=== PATIENT | female | born 1940 | race Caucasian/White ===

== ENCOUNTER 2016-09-10 11:11 | Inpatient (IN) | payer OTHER ==
[~2016-09-10] VITALS: Ht 157.5 cm; Wt 69.7 kg
[~2016-09-10 11:11] MED LIST: ABILIFY20 MG PO; ABILIFY30 MG PO; ADVIL,NUPRIN,M200 MG PO; ALPHAGAN P100 DROP/5 LEFT EYE; AMARYL1 MG PO; ASPIR 8181 M1 PO; ASPIR-LOW81 MG PO; ASPIRIN81 M1 PO; Aspirin E.C. PO; BAYER ASPIRIN325 MG PO; Bactrim,Septra Singl PO; CAL-CITRATE PL1 EACH PO; CARBIDOPA-LEVO1 EAC3 PO; CARBIDOPA/LEVO1 EACH PO; CEFEPIME HCL1 GM IM; CEFEPIME-D1 GM/50 ML IV; CEFTIN500 MG PO; CEFUROXIME500 MG PO; CELEBREX200 MG PO; CIPROFLOXACIN500 M1 PO; CITRACAL PLUS1 EAC1 PO; CITRACAL W/V1 TABLE1 PO; CITRACAL-VIT D1 EAC2 PO; COLACE100 MG PO; COUMADIN1 MG PO; COUMADIN2.5 MG PO; COUMADIN5 MG PO; COUMADIN6 MG PO; Ceftin PO; Citracal Maximum (Ca PO; DEPAKOTE ER (E500 MG PO; DEPAKOTE ER500 MG PO; DEPAKOTE500 MG PO; DULCOLAX10 MG PR; Depakote PO; Erythromycin Ophth O RIGHT EYE; FLAGYL500 MG PO; FLEET ENEMA-AD118 ML PR; GEMFIBROZIL600 MG PO; GLIMEPIRIDE1 MG PO; HYDROCHLOROTHIA25 MG PO; HYDROCODON-ACE1 EA11 PO; HYDROCODON-ACE1 EAC7 PO; HYDROCORTISON28.4 GM TP; Hydrodiuril,Oretic,E PO; IBUPROFEN800 MG PO; ISOSORBIDE DINI10 MG PO; LAMICTAL25 MG PO; LAMOTRIGINE25 M2 PO; LAMOTRIGINE25 MG PO; LEVAQUIN750 MG PO; LOPID600 MG PO; LOPRESSOR25 MG PO; LOTEMAX5 ML LEFT EYE; LOVENOX100 MG/1 M SC; Lopid PO; MAXIPIME1 GM IV; METOPROLOL SUCC50 MG PO; METOPROLOL TART25 MG PO; METRONIDAZOLE500 MG PO; MILK OF MAGN PO; MIRAPEX0.125 MG PO; MIRAPEX0.25 MG PO; MOTRIN600 MG PO; NITROSTAT0.4 MG SL; NOVOLOG 10100 UNITS/ SC; NOVOLOG PE100 UNITS/ SC; OMEPRAZOLE40 M1 PO; PERI-COLACE TA1 EACH PO; PLAVIX75 MG PO; PRAMIPEXOLE D0.25 MG PO; PRAMIPEXOLE0.125 MG PO; PRAVACHOL40 MG PO; PRAVASTATIN SOD40 MG PO; PRILOSEC40 MG PO; PROTONIX40 MG PO; Pravachol PO; Protonix PO; SENNA8.6 M1 PO; SEROQUEL50 MG PO; SIMVASTATIN10 MG PO; SINEMET 25-1001 EACH PO; SINEMET CR 25-1 EACH PO; SYSTANE 0.3-0.1 EACH BOTH EYES; Sinemet 25-100 PO; Systane 0.3-0.4% Eye BOTH EYES; TOPROL XL50 MG PO; TYLENOL EXTRA500 MG PO; TYLENOL REGULA325 MG PO; Toprol XL PO; VICODIN 5-3001 EACH PO; XALATAN2.5 ML BOTH EYES; Zocor PO
[2016-09-10 11:56] LABS: HEMATOCRIT 32.5 % (36.0-46.0); MCH 24.8 PG (29.0-34.0); MCV 77.6 FL (83-99); MEAN PLAT.VOLUME 9.3 uM^3 (9.5-12.4); PLATELET COUNT 386 K/uL (156-360); RBC DIS.WIDTH-CV 14.8 % (11.8-14.6); RBC DIS.WIDTH-SD 40.8 % (39-53); RED BLOOD COUNT 4.19 M/uL (3.80-5.20); WHITE BLOOD COUNT 21.8 K/uL (4.1-10.2)
[2016-09-10 11:58] LABS: EOSINOPHIL (%) 0.8 % (0-5); EOSINOPHIL COUNT 0.2 K/uL (0-0.3); IMMATURE GRANULOCYTE (%) 0.4 % (0.0-0.7); IMMATURE GRANULOCYTE COUNT 0.8 K/uL; LYMPHOCYTE COUNT 1.3 K/uL (1.0-2.8); MONOCYTE (%) 8.6 % (3-12); MONOCYTE COUNT 1.9 K/uL (0-0.8); NEUTROPHIL (%) 84.3 % (45-76); NEUTROPHIL COUNT 18.4 K/uL (1.8-6.4)
[2016-09-10 12:04] LABS: CHLORIDE 103 mEq/L (99-109); POTASSIUM 4.1 mEq/L (3.7-5.4); SODIUM 134 mEq/L (136-147)
[2016-09-10 12:06] LABS: GLUCOSE 126 mg/dL (70-99)
[2016-09-10 12:07] LABS: ANION GAP 8 MEQ/L (2-14)
[2016-09-10 12:08] LABS: TOTAL BILIRUBIN 0.5 mg/dL (0.0-1.0)
[2016-09-10 12:09] LABS: ALKALINE PHOSPHATASE 136 IU/L (3-129)
[2016-09-10 12:10] LABS: GFR ESTIMATE (CALCULATED) > 59 mL/min/
[2016-09-10 12:11] LABS: INTER. NORMALIZED RATIO 1.2; PROTHROMBIN TIME 12.1 (9.2-11.2); UREA NITROGEN (BUN) 14 mg/dL (9-23)
[2016-09-10 12:56] LABS: ADD MIUA? NO; BILIRUBIN NEGATIVE; BLOOD NEGATIVE; COLOR YELLOW ((YELLOW)); GLUCOSE (STRIP) NEGATIVE; KETONES NEGATIVE; LEUKOCYTES NEGATIVE; NITRITE NEGATIVE; PROTEIN (STRIP) NEGATIVE; SPECIFIC GRAVITY 1.011 (1.000-1.030); UCUL ADDED? NO
[2016-09-10 13:05] LABS: HEMATOLOGY COMMENT 1 SMEAR COMPATIBLE; USER ID CL
[2016-09-10] MEDS ORDERED: ASPERCREME1 EACH TP (13:38)
[2016-09-10] MEDS ORDERED: DITROPAN XL15 MG PO (13:39)
[2016-09-10] MEDS ORDERED: ASPIRIN325 MG PO (13:39)
[2016-09-10] MEDS ORDERED: LAMICTAL150 M1 PO (13:40)
[2016-09-10] MEDS ORDERED: GABAPENTIN600 MG PO (13:40)
[2016-09-10] MEDS ORDERED: LISINOPRIL5 MG PO (13:41)
[2016-09-10] MEDS ORDERED: METOPROLOL SUCC25 MG PO (13:41)
[2016-09-10] MEDS ORDERED: SEROQUEL12.5 MG PO (13:42)
[2016-09-10] MEDS ORDERED: SIMVASTATIN20 MG PO (13:42)
[2016-09-10] MEDS ORDERED: CIPRO500 MG PO (13:43)
[2016-09-10] MEDS ORDERED: COLACE100 MG PO (13:44)
[2016-09-10] MEDS ORDERED: CILOSTAZOL50 MG PO (13:44)
[2016-09-10] MEDS ORDERED: SENOKOT,SENN1 TABLET PO (13:45)
[2016-09-10] MEDS ORDERED: CARBIDOPA-LEVO1 EA10 PO (13:46)
[2016-09-10] MEDS ORDERED: ARTIFICIAL TEAR15 M1 BOTH EYES (13:47)
[2016-09-10] MEDS ORDERED: DULCOLAX10 MG PR (13:48)
[2016-09-10] MEDS ORDERED: BISACODYL5 MG PO (13:49)
[2016-09-10 16:47] VITALS: BP 164/70
[2016-09-10 17:41] VITALS: BP 116/70
[2016-09-10 19:14] VITALS: BP 155/77
[2016-09-11] VITALS (7 sets, daily range): BP systolic 97–156; BP diastolic 53–89
[2016-09-11 06:31] LABS: HEMATOCRIT 32.5 % (36.0-46.0); MCH 24.5 PG (29.0-34.0); MCHC 31.4 G/DL (30.0-36.0); MCV 77.9 FL (83-99); MEAN PLAT.VOLUME 9.4 uM^3 (9.5-12.4); PLATELET COUNT 341 K/uL (156-360); RBC DIS.WIDTH-SD 42.7 % (39-53); RED BLOOD COUNT 4.17 M/uL (3.80-5.20); WHITE BLOOD COUNT 17.5 K/uL (4.1-10.2)
[2016-09-11 07:01] LABS: EOSINOPHIL (%) 0.9 % (0-5); EOSINOPHIL COUNT 0.2 K/uL (0-0.3); IMMATURE GRANULOCYTE (%) 0.4 % (0.0-0.7); IMMATURE GRANULOCYTE COUNT 0.1 K/uL; LYMPHOCYTE COUNT 1.6 K/uL (1.0-2.8); MONOCYTE (%) 10.5 % (3-12); MONOCYTE COUNT 1.8 K/uL (0-0.8); NEUTROPHIL COUNT 13.8 K/uL (1.8-6.4)
[2016-09-12 03:49] VITALS: BP 97/46
[2016-09-12 07:26] LABS: EOSINOPHIL (%) 1.5 % (0-5); EOSINOPHIL COUNT 0.3 K/uL (0-0.3); HEMATOCRIT 31.3 % (36.0-46.0); IMMATURE GRANULOCYTE (%) 0.5 % (0.0-0.7); IMMATURE GRANULOCYTE COUNT 0.1 K/uL; MCH 24.6 PG (29.0-34.0); MCHC 31.9 G/DL (30.0-36.0); MCV 76.9 FL (83-99); MEAN PLAT.VOLUME 9.7 uM^3 (9.5-12.4); MONOCYTE (%) 7.5 % (3-12); MONOCYTE COUNT 1.4 K/uL (0-0.8); NEUTROPHIL COUNT 16.4 K/uL (1.8-6.4); PLATELET COUNT 370 K/uL (156-360); RBC DIS.WIDTH-CV 15.2 % (11.8-14.6); RBC DIS.WIDTH-SD 42.7 % (39-53); RED BLOOD COUNT 4.07 M/uL (3.80-5.20); WHITE BLOOD COUNT 19.2 K/uL (4.1-10.2)
[2016-09-12 07:45] VITALS: BP 113/53
[2016-09-12 08:07] LABS: ALKALINE PHOSPHATASE 106 IU/L (3-129); ANION GAP 11 MEQ/L (2-14); CHLORIDE 100 MEQ/L (99-109); GFR ESTIMATE (CALCULATED) > 59 mL/min/; GLUCOSE 98 mg/dL (70-99); POTASSIUM 3.9 MEQ/L (3.7-5.4); SAMPLE HEMOLYSIS CHECK 0; SAMPLE ICTERIC CHECK 0; SAMPLE LIPEMIA CHECK 0; SODIUM 133 MEQ/L (136-147); TOTAL BILIRUBIN 0.5 MG/DL (0.0-1.0); UREA NITROGEN (BUN) 16 mg/dL (9-23)
[2016-09-12 11:58] VITALS: BP 111/53
[2016-09-12 16:13] VITALS: BP 112/67
[2016-09-12 19:37] VITALS: BP 113/56
[2016-09-12 23:48] VITALS: BP 96/53
[2016-09-13 03:47] VITALS: BP 122/60
[2016-09-13 06:36] LABS: HEMATOCRIT 31.5 % (36.0-46.0); MCH 24.7 PG (29.0-34.0); MCHC 32.1 G/DL (30.0-36.0); MEAN PLAT.VOLUME 9.6 uM^3 (9.5-12.4); PLATELET COUNT 394 K/uL (156-360); RBC DIS.WIDTH-CV 15.1 % (11.8-14.6); RBC DIS.WIDTH-SD 42.7 % (39-53); RED BLOOD COUNT 4.09 M/uL (3.80-5.20); WHITE BLOOD COUNT 19.7 K/uL (4.1-10.2)
[2016-09-13 06:52] LABS: EOSINOPHIL (%) 1.4 % (0-5); EOSINOPHIL COUNT 0.3 K/uL (0-0.3); IMMATURE GRANULOCYTE (%) 0.6 % (0.0-0.7); IMMATURE GRANULOCYTE COUNT 0.1 K/uL; LYMPHOCYTE COUNT 1.4 K/uL (1.0-2.8); MONOCYTE (%) 7.9 % (3-12); MONOCYTE COUNT 1.6 K/uL (0-0.8); NEUTROPHIL (%) 82.6 % (45-76); NEUTROPHIL COUNT 16.3 K/uL (1.8-6.4)
[2016-09-13 07:07] LABS: ANION GAP 12 MEQ/L (2-14); CHLORIDE 101 MEQ/L (99-109); GFR ESTIMATE (CALCULATED) > 59 mL/min/; GLUCOSE 102 mg/dL (70-99); POTASSIUM 3.8 MEQ/L (3.7-5.4); SAMPLE HEMOLYSIS CHECK 0; SAMPLE ICTERIC CHECK 0; SAMPLE LIPEMIA CHECK 0; SODIUM 135 MEQ/L (136-147); UREA NITROGEN (BUN) 17 mg/dL (9-23)
[2016-09-13 07:55] VITALS: BP 107/57
[2016-09-13 11:38] VITALS: BP 107/55
[2016-09-13 15:23] VITALS: BP 98/50
[2016-09-13 20:00] VITALS: BP 127/57
[2016-09-14] VITALS: BP 116/56
[2016-09-14 04:00] VITALS: BP 102/52
[2016-09-14 08:00] VITALS: BP 104/51
[2016-09-14 12:00] VITALS: BP 113/52
[2016-09-14 15:54] VITALS: BP 120/62
[2016-09-14 20:00] VITALS: BP 112/57
[2016-09-15] VITALS (7 sets, daily range): BP systolic 103–168; BP diastolic 50–74
[2016-09-15 08:43] LABS: HEMATOCRIT 30.9 % (36.0-46.0); MCH 24.9 PG (29.0-34.0); MCV 77.6 FL (83-99); MEAN PLAT.VOLUME 9.4 uM^3 (9.5-12.4); PLATELET COUNT 432 K/uL (156-360); RBC DIS.WIDTH-CV 15.4 % (11.8-14.6); RBC DIS.WIDTH-SD 43.1 % (39-53); RED BLOOD COUNT 3.98 M/uL (3.80-5.20)
[2016-09-15 09:14] LABS: EOSINOPHIL (%) 0.8 % (0-5); EOSINOPHIL COUNT 0.2 K/uL (0-0.3); IMMATURE GRANULOCYTE (%) 0.6 % (0.0-0.7); IMMATURE GRANULOCYTE COUNT 0.1 K/uL; MONOCYTE (%) 7.6 % (3-12); MONOCYTE COUNT 1.4 K/uL (0-0.8); NEUTROPHIL (%) 85.4 % (45-76); NEUTROPHIL COUNT 16.2 K/uL (1.8-6.4)
[2016-09-16] VITALS (7 sets, daily range): BP systolic 107–137; BP diastolic 56–65
[2016-09-16 11:50] LABS: MCH 25.3 PG (29.0-34.0); MCHC 32.6 G/DL (30.0-36.0); MCV 77.4 FL (83-99); MEAN PLAT.VOLUME 9.8 uM^3 (9.5-12.4); PLATELET COUNT 448 K/uL (156-360); RBC DIS.WIDTH-CV 15.6 % (11.8-14.6); RBC DIS.WIDTH-SD 43.6 % (39-53); RED BLOOD COUNT 4.39 M/uL (3.80-5.20)
[2016-09-17 03:46] VITALS: BP 131/67
[2016-09-17 08:21] LABS: HEMATOCRIT 32.9 % (36.0-46.0); MCH 25.2 PG (29.0-34.0); MCHC 32.8 G/DL (30.0-36.0); MCV 76.9 FL (83-99); MEAN PLAT.VOLUME 9.5 uM^3 (9.5-12.4); PLATELET COUNT 482 K/uL (156-360); RBC DIS.WIDTH-CV 15.9 % (11.8-14.6); RED BLOOD COUNT 4.28 M/uL (3.80-5.20); WHITE BLOOD COUNT 22.9 K/uL (4.1-10.2)
[2016-09-17 08:47] VITALS: BP 101/55
[2016-09-17 12:29] VITALS: BP 104/58
[2016-09-17 15:33] VITALS: BP 115/56; BP 96/53
[2016-09-17 20:00] VITALS: BP 114/60
[2016-09-17 23:30] VITALS: BP 98/52
[2016-09-18] VITALS (7 sets, daily range): BP systolic 89–134; BP diastolic 54–76
[2016-09-18 07:17] LABS: HEMATOCRIT 31.6 % (36.0-46.0); MCH 24.6 PG (29.0-34.0); MCV 77.1 FL (83-99); MEAN PLAT.VOLUME 10.2 uM^3 (9.5-12.4); PLATELET COUNT 496 K/uL (156-360); RBC DIS.WIDTH-SD 44.5 % (39-53)
[2016-09-18 07:34] LABS: ANION GAP 8 MEQ/L (2-14); CHLORIDE 100 MEQ/L (99-109); GFR ESTIMATE (CALCULATED) > 59 mL/min/; GLUCOSE 124 mg/dL (70-99); POTASSIUM 4.3 MEQ/L (3.7-5.4); SAMPLE HEMOLYSIS CHECK 0; SAMPLE ICTERIC CHECK 0; SAMPLE LIPEMIA CHECK 0; SODIUM 131 MEQ/L (136-147); UREA NITROGEN (BUN) 24 mg/dL (9-23)
[2016-09-18 08:03] LABS: BASOPHIL COUNT 0.1 K/uL (0-0.1); EOSINOPHIL (%) 0.7 % (0-5); EOSINOPHIL COUNT 0.2 K/uL (0-0.3); HEMATOLOGY COMMENT 1 SMEAR COMPATIBLE; IMMATURE GRANULOCYTE (%) 0.7 % (0.0-0.7); IMMATURE GRANULOCYTE COUNT 0.2 K/uL; LYMPHOCYTE COUNT 1.4 K/uL (1.0-2.8); MONOCYTE COUNT 1.8 K/uL (0-0.8); NEUTROPHIL (%) 85.9 % (45-76); NEUTROPHIL COUNT 22.3 K/uL (1.8-6.4); USER ID STC
[2016-09-19 04:30] VITALS: BP 80/48
[2016-09-19 07:45] VITALS: BP 92/46
[2016-09-19 08:07] LABS: ALKALINE PHOSPHATASE 96 IU/L (3-129); ANION GAP 10 MEQ/L (2-14); CHLORIDE 103 MEQ/L (99-109); GFR ESTIMATE (CALCULATED) > 59 mL/min/; GLUCOSE 125 mg/dL (70-99); POTASSIUM 4.2 MEQ/L (3.7-5.4); SAMPLE HEMOLYSIS CHECK 0; SAMPLE ICTERIC CHECK 0; SAMPLE LIPEMIA CHECK 0; SODIUM 134 MEQ/L (136-147); TOTAL BILIRUBIN 0.4 MG/DL (0.0-1.0); UREA NITROGEN (BUN) 30 mg/dL (9-23)
[2016-09-19 08:14] LABS: HEMATOCRIT 31.9 % (36.0-46.0); MCH 24.5 PG (29.0-34.0); MCV 76.5 FL (83-99); MEAN PLAT.VOLUME 9.9 uM^3 (9.5-12.4); PLATELET COUNT 468 K/uL (156-360); RBC DIS.WIDTH-SD 42.8 % (39-53); RED BLOOD COUNT 4.17 M/uL (3.80-5.20); WHITE BLOOD COUNT 25.8 K/uL (4.1-10.2)
[2016-09-19 10:12] LABS: BASOPHIL COUNT 0.1 K/uL (0-0.1); EOSINOPHIL (%) 0.5 % (0-5); EOSINOPHIL COUNT 0.1 K/uL (0-0.3); HEMATOLOGY COMMENT 1 SMEAR COMPATIBLE; IMMATURE GRANULOCYTE (%) 0.5 % (0.0-0.7); IMMATURE GRANULOCYTE COUNT 1.4 K/uL; LYMPHOCYTE COUNT 1.6 K/uL (1.0-2.8); MONOCYTE (%) 8.7 % (3-12); MONOCYTE COUNT 2.2 K/uL (0-0.8); NEUTROPHIL (%) 83.9 % (45-76); NEUTROPHIL COUNT 21.7 K/uL (1.8-6.4); USER ID CCL
[2016-09-19 11:20] VITALS: BP 115/55
[2016-09-19 15:40] LABS: TROP-I INTERPRETATION NEGATIVE; TROPONIN-I 0.12 ng/mL (0.0-0.30)
[2016-09-19 15:48] VITALS: BP 101/56
[2016-09-19 19:50] VITALS: BP 100/75
[2016-09-19 23:20] VITALS: BP 121/56
[2016-09-20 03:46] VITALS: BP 107/53
[2016-09-20 08:20] VITALS: BP 96/53
[2016-09-20 16:55] VITALS: BP 99/58
[2016-09-20 20:00] VITALS: BP 143/72
[2016-09-20 23:38] VITALS: BP 110/67
[2016-09-21 04:03] VITALS: BP 102/55
[2016-09-21 07:49] VITALS: BP 124/61
[2016-09-21 11:19] VITALS: BP 104/53
[2016-09-21 16:24] VITALS: BP 108/56
[2016-09-21 19:48] VITALS: BP 91/54
[2016-09-22] VITALS (9 sets, daily range): BP systolic 97–134; BP diastolic 54–78
[2016-09-22 06:47] LABS: HEMATOCRIT 35.8 % (36.0-46.0); MCH 23.5 PG (29.0-34.0); MCHC 30.4 G/DL (30.0-36.0); MCV 77.3 FL (83-99); PLATELET COUNT 498 K/uL (156-360); RBC DIS.WIDTH-CV 16.3 % (11.8-14.6); RBC DIS.WIDTH-SD 45.7 % (39-53); RED BLOOD COUNT 4.63 M/uL (3.80-5.20)
[2016-09-22 07:13] LABS: ANION GAP 12 MEQ/L (2-14); CHLORIDE 106 MEQ/L (99-109); POTASSIUM 4.1 MEQ/L (3.7-5.4); SAMPLE HEMOLYSIS CHECK 0; SAMPLE ICTERIC CHECK 0; SAMPLE LIPEMIA CHECK 0; SODIUM 139 MEQ/L (136-147)
[2016-09-22 07:21] LABS: GFR ESTIMATE (CALCULATED) > 59 mL/min/; GLUCOSE 90 mg/dL (70-99); UREA NITROGEN (BUN) 22 mg/dL (9-23)
[2016-09-22 09:13] LABS: HEMATOLOGY COMMENT 1 SMEAR COMPATIBLE; USER ID CL
[2016-09-22 09:14] LABS: EOSINOPHIL (%) 0.3 % (0-5); EOSINOPHIL COUNT 0.1 K/uL (0-0.3); IMMATURE GRANULOCYTE (%) 0.6 % (0.0-0.7); IMMATURE GRANULOCYTE COUNT 0.1 K/uL; LYMPHOCYTE COUNT 1.1 K/uL (1.0-2.8); MONOCYTE (%) 5.9 % (3-12); MONOCYTE COUNT 1.4 K/uL (0-0.8); NEUTROPHIL (%) 88.5 % (45-76); NEUTROPHIL COUNT 20.4 K/uL (1.8-6.4)
[2016-09-23 03:54] VITALS: BP 114/55
[2016-09-23 08:01] VITALS: BP 126/69
[2016-09-23 12:00] VITALS: BP 117/53
[2016-09-23 20:00] VITALS: BP 110/55
[2016-09-23 23:41] VITALS: BP 103/59
[2016-09-24 03:28] VITALS: BP 128/52
[2016-09-24 07:45] LABS: HEMATOCRIT 32.4 % (36.0-46.0); MCH 23.1 PG (29.0-34.0); MCHC 29.6 G/DL (30.0-36.0); MCV 78.1 FL (83-99); MEAN PLAT.VOLUME 9.8 uM^3 (9.5-12.4); PLATELET COUNT 495 K/uL (156-360); RBC DIS.WIDTH-CV 16.4 % (11.8-14.6); RBC DIS.WIDTH-SD 46.6 % (39-53); RED BLOOD COUNT 4.15 M/uL (3.80-5.20); WHITE BLOOD COUNT 21.3 K/uL (4.1-10.2)
[2016-09-24 07:53] LABS: EOSINOPHIL (%) 1.1 % (0-5); EOSINOPHIL COUNT 0.2 K/uL (0-0.3); IMMATURE GRANULOCYTE (%) 0.6 % (0.0-0.7); IMMATURE GRANULOCYTE COUNT 0.1 K/uL; LYMPHOCYTE COUNT 1.3 K/uL (1.0-2.8); MONOCYTE (%) 7.7 % (3-12); MONOCYTE COUNT 1.7 K/uL (0-0.8); NEUTROPHIL (%) 84.2 % (45-76)
[2016-09-24 08:17] VITALS: BP 97/58
[2016-09-24 11:43] VITALS: BP 109/53
[2016-09-24 11:57] LABS: HEMATOLOGY COMMENT 1 SMEAR COMPATIBLE; PLAT.SUFFICIENCY INCREASED; USER ID TLW
[2016-09-24 16:01] VITALS: BP 104/61
[2016-09-24 20:00] VITALS: BP 100/52
[2016-09-24 23:58] VITALS: BP 110/52
[2016-09-25 03:25] VITALS: BP 102/51
[2016-09-25 08:02] VITALS: BP 118/60
[2016-09-25 11:31] VITALS: BP 107/55
[2016-09-25 16:00] VITALS: BP 108/53
[2016-09-25 23:43] VITALS: BP 94/55
[2016-09-26 07:55] VITALS: BP 115/62
[2016-09-26 16:35] VITALS: BP 106/58
[2016-09-26 23:28] VITALS: BP 127/60
[2016-09-27 06:45] VITALS: BP 119/59
[2016-09-27 07:35] LABS: HEMATOCRIT 34.7 % (36.0-46.0); MCH 23.3 PG (29.0-34.0); MCHC 29.7 G/DL (30.0-36.0); MCV 78.5 FL (83-99); MEAN PLAT.VOLUME 9.7 uM^3 (9.5-12.4); PLATELET COUNT 489 K/uL (156-360); RBC DIS.WIDTH-CV 16.4 % (11.8-14.6); RBC DIS.WIDTH-SD 46.4 % (39-53); RED BLOOD COUNT 4.42 M/uL (3.80-5.20); WHITE BLOOD COUNT 19.4 K/uL (4.1-10.2)
[2016-09-27 07:55] LABS: EOSINOPHIL (%) 1.2 % (0-5); EOSINOPHIL COUNT 0.2 K/uL (0-0.3); IMMATURE GRANULOCYTE COUNT 0.2 K/uL; LYMPHOCYTE COUNT 1.2 K/uL (1.0-2.8); MONOCYTE COUNT 1.2 K/uL (0-0.8); NEUTROPHIL (%) 85.3 % (45-76); NEUTROPHIL COUNT 16.5 K/uL (1.8-6.4)
[2016-09-27 11:10] VITALS: BP 110/53
[2016-09-27 14:47] VITALS: BP 108/56
[2016-09-27] MEDS ORDERED: FLAGYL500 MG PO (17:33)
[2016-09-27] MEDS ORDERED: CITRACAL W/V1 TABLE1 PO (17:36)
[2016-09-28] VITALS: BP 142/63
[2016-09-28 07:00] VITALS: BP 113/65
== END 2016-09-28 10:05 | DRG 441 ==
LOC: EME → EDBD 11:11 → EDOF 15:35 → 2EAST 15:35
PROVIDERS: Emergency Medicine; Internal Medicine
PROC: 0F9130Z Drainage of Right Lobe Liver with Drainage Device, Percutaneous Approach (ICD-10-PCS; principal; 2016-09-22)
DX: K75.0 Abscess of liver (principal); J86.9 Pyothorax without fistula; J18.1 Lobar pneumonia, unspecified organism; J90 Pleural effusion, not elsewhere classified; I51.0 Cardiac septal defect, acquired; N39.0 Urinary tract infection, site not specified; G20 Parkinson's disease; E11.9 Type 2 diabetes mellitus without complications; I10 Essential (primary) hypertension; F31.9 Bipolar disorder, unspecified; K73.9 Chronic hepatitis, unspecified; I35.0 Nonrheumatic aortic (valve) stenosis; N16 Renal tubulo-interstitial disorders in diseases classified elsewhere; E78.5 Hyperlipidemia, unspecified; Z90.49 Acquired absence of other specified parts of digestive tract
CPT/HCPCS: 49405; 71010; 71020; 71250; 74176; 80048; 80053; 81003; 83605; 84484; 85025; 85027; 85610; 87040; 87070; 87075; 87077; 87205; 92610 GN; 93005; 94640; 97530 GP; 99202; 99281; 99285; C1769; J0696; J1200; J1956; J2543; J3010; J3370; J7040; J7050

== ENCOUNTER → 2016-11-14 | Outpatient (CLI) | payer OTHER ==
[~2016-11-14] MED LIST changes: +ARTIFICIAL TEAR15 M1 BOTH EYES; +ASPERCREME1 EACH TP; +ASPIRIN325 MG PO; +BISACODYL5 MG PO; +CARBIDOPA-LEVO1 EA10 PO; +CILOSTAZOL50 MG PO; +CIPRO500 MG PO; +DITROPAN XL15 MG PO; +GABAPENTIN600 MG PO; +LAMICTAL150 M1 PO; +LISINOPRIL5 MG PO; +METOPROLOL SUCC25 MG PO; +SENOKOT,SENN1 TABLET PO; +SEROQUEL12.5 MG PO; +SIMVASTATIN20 MG PO
[2016-11-14 09:56] LABS: INTER. NORMALIZED RATIO 1.1; PTT 34.5 (25-32)
== END ==
LOC: OPR 08:41 → EDSTATUS 09:00 → OPR 11-19 08:00
PROVIDERS: Internal Medicine
PROC: 0W9G30Z Drainage of Peritoneal Cavity with Drainage Device, Percutaneous Approach (ICD-10-PCS; principal; 2016-11-14)
DX: K75.0 Abscess of liver (principal)
CPT/HCPCS: 49405; 85610; 85730; 87070; 87075; 87077; 87147; 87186; 87205; C1769; J3010

== ENCOUNTER 2016-11-28 13:33 | Inpatient (IN) | payer OTHER ==
[~2016-11-28] VITALS: Ht 162.6 cm; Wt 66.3 kg
[2016-11-28 15:11] LABS: ADD MIUA? YES; BILIRUBIN NEGATIVE; BLOOD NEGATIVE; COLOR YELLOW ((YELLOW)); GLUCOSE (STRIP) NEGATIVE; KETONES 5; LEUKOCYTES MODERATE; NITRITE NEGATIVE; PROTEIN (STRIP) 30; SPECIFIC GRAVITY 1.018 (1.000-1.030); UROBILINOGEN 0.2 MG/DL (0.2-1.0)
[2016-11-28 15:22] LABS: BACTERIA NONE SEEN /HPF; EPITHELIAL CELLS 1+ /HPF; MUCUS TRACE /LPF; RED BLOOD CELLS 0-5 /HPF (0-5); WHITE BLOOD CELLS 20-30 /HPF (0-5)
[2016-11-28 16:09] LABS: BASOPHIL COUNT 0.1 K/uL (0-0.1); EOSINOPHIL (%) 0.9 % (0-5); EOSINOPHIL COUNT 0.2 K/uL (0-0.3); HEMATOCRIT 29.6 % (36.0-46.0); IMMATURE GRANULOCYTE (%) 1.1 % (0.0-0.7); IMMATURE GRANULOCYTE COUNT 0.2 K/uL; INSTRUMENT ABS NEUTROPHIL CT 18.7 K/uL; LYMPHOCYTE COUNT 1.7 K/uL (1.0-2.8); MCH 23.9 PG (29.0-34.0); MCHC 30.4 G/DL (30.0-36.0); MCV 78.7 FL (83-99); MEAN PLAT.VOLUME 9.6 uM^3 (9.5-12.4); MONOCYTE (%) 5.4 % (3-12); MONOCYTE COUNT 1.2 K/uL (0-0.8); NEUTROPHIL (%) 84.9 % (45-76); NEUTROPHIL COUNT 18.7 K/uL (1.8-6.4); PLATELET COUNT 454 K/uL (156-360); RBC DIS.WIDTH-CV 16.3 % (11.8-14.6); RED BLOOD COUNT 3.76 M/uL (3.80-5.20)
[2016-11-28 16:19] LABS: CHLORIDE 108 mEq/L (99-109); INTER. NORMALIZED RATIO 1.2; POTASSIUM 3.3 mEq/L (3.7-5.4); SODIUM 140 mEq/L (136-147)
[2016-11-28 16:23] LABS: ANION GAP 12 MEQ/L (2-14)
[2016-11-28 16:24] LABS: TOTAL BILIRUBIN 0.2 mg/dL (0.0-1.0)
[2016-11-28 16:25] LABS: ALKALINE PHOSPHATASE 95 IU/L (3-129); GFR ESTIMATE (CALCULATED) > 59 mL/min/
[2016-11-28 16:26] LABS: UREA NITROGEN (BUN) 13 mg/dL (9-23)
[2016-11-28 16:29] LABS: LIPASE 13 U/L (1.0-51.0)
[2016-11-28 16:30] LABS: GLUCOSE 136 mg/dL (70-99)
[2016-11-28] MEDS ORDERED: ASPERCREME1 EACH TP (17:14)
[2016-11-28] MEDS ORDERED: ASPIRIN325 MG PO (17:15)
[2016-11-28] MEDS ORDERED: CITRACAL W/V1 TABLE1 PO (17:16)
[2016-11-28] MEDS ORDERED: CEFEPIME HCL2 GM IV (17:17)
[2016-11-28] MEDS ORDERED: VANCOMYCIN1 GM/150 M IV (17:23)
[2016-11-28] MEDS ORDERED: PROBIOTIC1 EAC1 PO (17:28)
[2016-11-28] MEDS ORDERED: LOPRESSOR25 MG PO (17:28)
[2016-11-28] MEDS ORDERED: PERCOCET 2.51 TABLET PO (17:32)
[2016-11-28 22:27] VITALS: BP 146/65
[2016-11-29 07:29] LABS: HEMATOCRIT 26.9 % (36.0-46.0); MCH 23.6 PG (29.0-34.0); MCHC 29.7 G/DL (30.0-36.0); MCV 79.4 FL (83-99); MEAN PLAT.VOLUME 9.5 uM^3 (9.5-12.4); PLATELET COUNT 407 K/uL (156-360); RBC DIS.WIDTH-CV 16.2 % (11.8-14.6); RBC DIS.WIDTH-SD 46.8 % (39-53); RED BLOOD COUNT 3.39 M/uL (3.80-5.20)
[2016-11-29 07:36] LABS: ANION GAP 9 MEQ/L (2-14); CHLORIDE 108 MEQ/L (99-109); GFR ESTIMATE (CALCULATED) > 59 mL/min/; GLUCOSE 105 mg/dL (70-99); POTASSIUM 3.8 MEQ/L (3.7-5.4); SAMPLE HEMOLYSIS CHECK 0; SAMPLE ICTERIC CHECK 0; SAMPLE LIPEMIA CHECK 0; SODIUM 140 MEQ/L (136-147); UREA NITROGEN (BUN) 11 mg/dL (9-23)
[2016-11-29 07:43] LABS: WHITE BLOOD COUNT 13.1 K/uL (4.1-10.2)
[2016-11-29 08:16] VITALS: BP 110/52
[2016-11-29 11:08] VITALS: BP 114/48
[2016-11-29 16:33] VITALS: BP 105/70
[2016-11-29 23:26] VITALS: BP 114/65
[2016-11-30 07:25] VITALS: BP 133/63
[2016-11-30 10:22] LABS: BASOPHIL COUNT 0.1 K/uL (0-0.1); EOSINOPHIL (%) 2.2 % (0-5); EOSINOPHIL COUNT 0.4 K/uL (0-0.3); HEMATOCRIT 30.1 % (36.0-46.0); IMMATURE GRANULOCYTE (%) 1.2 % (0.0-0.7); IMMATURE GRANULOCYTE COUNT 0.2 K/uL; INSTRUMENT ABS NEUTROPHIL CT 13.3 K/uL; LYMPHOCYTE COUNT 1.5 K/uL (1.0-2.8); MCH 23.9 PG (29.0-34.0); MCHC 29.2 G/DL (30.0-36.0); MCV 81.8 FL (83-99); MEAN PLAT.VOLUME 9.7 uM^3 (9.5-12.4); MONOCYTE (%) 6.1 % (3-12); NEUTROPHIL (%) 80.9 % (45-76); NEUTROPHIL COUNT 13.3 K/uL (1.8-6.4); PLATELET COUNT 395 K/uL (156-360); RBC DIS.WIDTH-CV 16.2 % (11.8-14.6); RBC DIS.WIDTH-SD 48.4 % (39-53); RED BLOOD COUNT 3.68 M/uL (3.80-5.20); WHITE BLOOD COUNT 16.5 K/uL (4.1-10.2)
[2016-11-30 16:03] VITALS: BP 105/78
[2016-12-01 00:09] VITALS: BP 98/76
[2016-12-01 06:57] VITALS: BP 123/91
[2016-12-01 15:50] VITALS: BP 117/58
[2016-12-02 00:12] VITALS: BP 143/61
[2016-12-02 06:43] LABS: GFR ESTIMATE (CALCULATED) > 59 mL/min/; UREA NITROGEN (BUN) 8 mg/dL (9-23)
[2016-12-02 07:14] VITALS: BP 115/54
[2016-12-02 18:03] VITALS: BP 124/58
[2016-12-02 22:26] VITALS: BP 122/58
[2016-12-03 07:38] VITALS: BP 125/61
[2016-12-03] MEDS ORDERED: VANCOMYCIN1 GM/150 M IV (14:50)
[2016-12-03] MEDS ORDERED: ROCEPHIN1 GM/50 ML IV (14:51)
[2016-12-03 15:00] VITALS: BP 128/70
== END 2016-12-03 17:42 | DRG 443 ==
LOC: EME 13:33 → EDOF 18:05 → 5EAST 18:05
PROVIDERS: Emergency Medicine; Internal Medicine
DX: K75.0 Abscess of liver (principal); D63.8 Anemia in other chronic diseases classified elsewhere; F31.9 Bipolar disorder, unspecified; I10 Essential (primary) hypertension; I48.91 Unspecified atrial fibrillation; E11.9 Type 2 diabetes mellitus without complications; G20 Parkinson's disease; I25.10 Atherosclerotic heart disease of native coronary artery without angina pectoris; B95.62 Methicillin resistant Staphylococcus aureus infection as the cause of diseases classified elsewhere; B95.2 Enterococcus as the cause of diseases classified elsewhere; B96.4 Proteus (mirabilis) (morganii) as the cause of diseases classified elsewhere
CPT/HCPCS: 71010; 74176; 80048; 80053; 81003; 82565; 83690; 84520; 85025; 85025 91; 85027; 85610; 87040; 87070; 87075; 87077; 87147; 87186; 87205; 99281; 99285; J0692; J0696; J3370; J7030; J7050

== ENCOUNTER 2017-05-10 19:48 | Emergency (ER) | payer OTHER ==
[~2017-05-10] VITALS: Ht 162.6 cm; Wt 75.8 kg
[~2017-05-10 19:48] MED LIST changes: +CEFEPIME HCL2 GM IV; +PERCOCET 2.51 TABLET PO; +PROBIOTIC1 EAC1 PO; +ROCEPHIN1 GM/50 ML IV; +VANCOMYCIN1 GM/150 M IV
[2017-05-11 00:18] VITALS: BP 137/58
== END 2017-05-11 00:20 | disposition home or self-care (01) ==
LOC: EME → EDBD 19:48 → EME 19:48
DX: H57.8 Other specified disorders of eye and adnexa (principal); Z04.1 Encounter for examination and observation following transport accident; G20 Parkinson's disease; F03.90 Unspecified dementia, unspecified severity, without behavioral disturbance, psychotic disturbance, mood disturbance, and anxiety; E78.5 Hyperlipidemia, unspecified; E11.9 Type 2 diabetes mellitus without complications; F31.9 Bipolar disorder, unspecified; F41.9 Anxiety disorder, unspecified; I25.2 Old myocardial infarction; Z79.82 Long term (current) use of aspirin; Z87.442 Personal history of urinary calculi
CPT/HCPCS: 99281; 99284